=== PATIENT | female | born 1995 | race Caucasian/White ===

== ENCOUNTER 2020-09-12 17:02 | Emergency (ER) | payer OTHER ==
[~2020-09-12 17:02] MED LIST: BROMFED DM COU473 ML PO; IBUPROFEN800 MG PO; TESSALON PERLE100 MG PO
[2020-09-12 19:18] LABS: HEMOGLOBIN 14.4 gm/dl (12.3-15.3); RED BLOOD COUNT 4.97 M/UL (4.00-5.10); WHITE BLOOD COUNT 18.4 K/UL (4.5-11.0)
[2020-09-12 19:41] LABS: BUN/CREATININE RATIO 11 (0-10)
[2020-09-12] MEDS ORDERED: FLOVENT 110.088 GM/I INH (23:24)
[2020-09-12] MEDS ORDERED: IBUPROFEN800 MG PO (23:24)
[2020-09-12] MEDS ORDERED: ZOFRAN 4 MG TAB4 MG PO (23:24)
[2020-09-12] MEDS ORDERED: AUGMENTIN 875-1 EACH PO (23:24)
[2020-09-12] MEDS ORDERED: OMNICEF 300 MG300 MG PO (23:24)
== END 2020-09-12 23:54 | disposition home or self-care (01) ==
LOC: ER1 17:02
PROVIDERS: Emergency Medicine
DX: J12.9 Viral pneumonia, unspecified (principal); N39.0 Urinary tract infection, site not specified; Z91.041 Radiographic dye allergy status; Z20.822 Contact with and (suspected) exposure to COVID-19
CPT/HCPCS: 71045; 80053; 81001; 82550; 82553; 83605; 83735; 83874; 83880; 84484; 84703; 85025; 85379; 87040; 87086; 93005; 96365; 96375; 99285; J0696; J1200; J2930; Q9962; U0002

== ENCOUNTER 2020-11-01 18:49 | Emergency (ER) | payer OTHER ==
[~2020-11-01 18:49] MED LIST changes: +AUGMENTIN 875-1 EACH PO; +FLOVENT 110.088 GM/I INH; +OMNICEF 300 MG300 MG PO; +ZOFRAN 4 MG TAB4 MG PO
== END 2020-11-01 19:55 | disposition home or self-care (01) ==
LOC: ER1 18:49
DX: R07.9 Chest pain, unspecified (principal); R06.02 Shortness of breath; R55 Syncope and collapse; F17.290 Nicotine dependence, other tobacco product, uncomplicated; Z91.041 Radiographic dye allergy status
CPT/HCPCS: 99284

== ENCOUNTER → 2020-11-07 | Outpatient (CLI) | payer OTHER | LOC: HEART 5 15:30 | DX: R00.2 Palpitations (principal) ==

== ENCOUNTER → 2021-05-30 | Outpatient (CLI) | payer OTHER ==
[~2021-05-30] MED LIST changes: +ASPERCREME LID1 EACH TP; +NAPROSYN500 MG PO; +ZOFRAN ODT 4 MG4 MG SL
== END ==
LOC: KOH-I 09:30
DX: M25.512 Pain in left shoulder (principal)
CPT/HCPCS: 73030

== ENCOUNTER 2021-06-02 11:19 | Emergency (ER) | payer OTHER ==
[~2021-06-02 11:19] MED LIST changes: -ASPERCREME LID1 EACH TP; -NAPROSYN500 MG PO; -ZOFRAN ODT 4 MG4 MG SL
[2021-06-02] MEDS ORDERED: NAPROSYN500 MG PO (12:21)
[2021-06-02] MEDS ORDERED: ASPERCREME LID1 EACH TP (12:21)
[2021-06-02] MEDS ORDERED: ZOFRAN ODT 4 MG4 MG SL (12:21)
== END 2021-06-02 12:25 | disposition home or self-care (01) ==
LOC: ER1 11:19
DX: M25.512 Pain in left shoulder (principal); F17.290 Nicotine dependence, other tobacco product, uncomplicated
CPT/HCPCS: 99283

== ENCOUNTER 2021-08-08 21:48 | Emergency (ER) | payer OTHER ==
[~2021-08-08 21:48] MED LIST changes: +ASPERCREME LID1 EACH TP; +NAPROSYN500 MG PO; +ZOFRAN ODT 4 MG4 MG SL
[2021-08-09] MEDS ORDERED: BENZONATATE200 MG PO (00:17)
[2021-08-09] MEDS ORDERED: MEDROL DOSEPAK 24 MG PO (00:17)
[2021-08-09] MEDS ORDERED: PROVENTIL HFA6.7 GM INH (00:44)
== END 2021-08-09 00:45 | disposition home or self-care (01) ==
LOC: ER1 21:48
DX: R05.9 Cough, unspecified (principal); R50.9 Fever, unspecified; R07.89 Other chest pain; F17.200 Nicotine dependence, unspecified, uncomplicated
CPT/HCPCS: 71045; 96372; 99283; J1100

== ENCOUNTER 2021-11-18 20:56 | Emergency (ER) | payer OTHER ==
[~2021-11-18 20:56] MED LIST changes: +BENZONATATE200 MG PO; +MEDROL DOSEPAK 24 MG PO; +PROVENTIL HFA6.7 GM INH
[2021-11-18 22:17] LABS: HEMOGLOBIN 13.6 gm/dl (12.3-15.3); RED BLOOD COUNT 4.8 M/UL (4.00-5.10); WHITE BLOOD COUNT 7.7 K/UL (4.5-11.0)
[2021-11-18 23:07] LABS: BUN/CREATININE RATIO 8 (0-10)
[2021-11-19] MEDS ORDERED: HYDROXYZINE HCL25 MG PO (02:19)
[2021-11-19] MEDS ORDERED: LOPRESSOR 25 MG25 MG PO (04:09)
== END 2021-11-19 02:30 | disposition home or self-care (01) ==
LOC: ER1 20:56
PROVIDERS: Student in an Organized Health Care Education/Training Program
DX: R00.2 Palpitations (principal); F17.290 Nicotine dependence, other tobacco product, uncomplicated
CPT/HCPCS: 71045; 80053; 82550; 82553; 84484; 85025; 93005; 99285